=== PATIENT | female | born 1985 | race Caucasian/White ===

== ENCOUNTER 2019-12-07 11:29 | Emergency (ER) | payer OTHER ==
[~2019-12-07] VITALS: Ht 167.6 cm; Wt 59.0 kg
== END 2019-12-07 14:02 | disposition home or self-care (01) ==
LOC: ER 11:29
DX: S81.022A Laceration with foreign body, left knee, initial encounter (principal); S50.311A Abrasion of right elbow, initial encounter; S60.812A Abrasion of left wrist, initial encounter; W18.09XA Striking against other object with subsequent fall, initial encounter; Y93.89 Activity, other specified; Y92.838 Other recreation area as the place of occurrence of the external cause; Y99.8 Other external cause status
CPT/HCPCS: 12002; G0168